=== PATIENT | male | born 1935 | race Caucasian/White ===

== ENCOUNTER 2019-05-04 18:24 | Emergency (ER) | payer MEDICARE ==
[2019-05-04] MEDS ORDERED: Adacel (T-DAP) 0.5 ML SYRINGE ONE (18:45)
--- NOTE | 2019-05-04 19:38 | RAD ---
LEFT FOURTH FINGER: 05/04/19 There is a medial dislocation of the middle phalanx of the ring finger at the PIP joint. The distal p ortions of the finger are deviated towards the ulnar side of the hand. No fracture was detected. Elsewhere, other bones appeared intact. An opaque metallic foreign body is seen in the soft tissues n ear the third MCP joint. There probably was an old injury to the tip of the ulnar styloid. IMPRESSION: Medial dislocation of the ring finger at the level of the PIP joint. No fracture seen. POS: HOME
== END 2019-05-04 19:01 | disposition home or self-care (01) ==
LOC: BURERS 18:24
DX: S63.285A Dislocation of proximal interphalangeal joint of left ring finger, initial encounter (principal); I10 Essential (primary) hypertension; W22.8XXA Striking against or struck by other objects, initial encounter
CPT/HCPCS: 26770; 90471; 90715